=== PATIENT | male | born 1975 | race Caucasian/White ===

== ENCOUNTER 2020-12-23 09:45 | Outpatient (RCR) | payer OTHER, SELFPAY ==
[2020-10-27 12:11] VITALS: PULSE 56
--- NOTE | 2021-01-07 10:08 | PCCPR ---
Niko has not attended in two weeks. Called today, stated that he has been out of town and has a today but plans to return Monday.
--- NOTE | 2021-01-14 15:16 | PCCPR ---
Attempted to call Niko this am after he did not show up for his class time to check in and see what his plans are for returning or if we should discharge him from the program. He only attended 2 sessions this month and only attended 3 sessions in Nov. Niko answered and asked if he could call me back in 10 min and I never heard back. Will attempt to call again.
== END 2021-01-20 18:55 | disposition home or self-care (01) ==
LOC: ANHCPREHAB 09:45
PROVIDERS: PCP Family Medicine; Visit Provider Internal Medicine Cardiovascular Disease
DX: Z95.1 Presence of aortocoronary bypass graft (principal)
CPT/HCPCS: 93798